=== PATIENT | male | born 1940 | race Caucasian/White ===

== ENCOUNTER → 2017-11-15 | Outpatient (CLI) | payer OTHER | LOC: FIMAGING 15:09 | PROVIDERS: ATTEND Physical Medicine & Rehabilitation | DX: M51.04 Intervertebral disc disorders with myelopathy, thoracic region (principal); M51.84 Other intervertebral disc disorders, thoracic region ==

== ENCOUNTER → 2017-12-31 | Outpatient (CLI) | payer OTHER | LOC: FIMAGING 15:21 | PROVIDERS: ATTEND Physical Medicine & Rehabilitation | DX: M51.36 Other intervertebral disc degeneration, lumbar region (principal); M47.896 Other spondylosis, lumbar region ==